=== PATIENT | male | born 1965 | race Caucasian/White ===

== ENCOUNTER 2024-09-27 11:42 | Day surgery (SDC) | payer BC ==
[~2024-09-27] VITALS: Ht 188 cm; Wt 134.5 kg
[~2024-09-27 11:42] MED LIST: INDO50S; Indomethacin50 MG; Lactated Ringer's 1,000 ML IV ONE
[2024-09-27] MEDS ORDERED: ATORVASTATIN CA20 MG (12:13)
[2024-09-27] MEDS ORDERED: Lidocaine HCl 4% 5 ML SDA ONE (12:38)
[2024-09-27] MEDS ORDERED: Lactated Ringer's 1,000 ML IV ONE (12:51)
[2024-09-27] MEDS ORDERED: propofoL 50 ML IV ONE ×2 (12:56→13:21)
[2024-09-27 14:26] VITALS: BP 110/64
== END 2024-09-27 14:20 | disposition home or self-care (01) ==
LOC: ORSCSDS 11:42
PROVIDERS: Specialist
PROC: 0DB58ZX Excision of Esophagus, Via Natural or Artificial Opening Endoscopic, Diagnostic (ICD-10-PCS; principal; 2024-09-27 13:00)
PROC: 0DB78ZX Excision of Stomach, Pylorus, Via Natural or Artificial Opening Endoscopic, Diagnostic (ICD-10-PCS; principal; 2024-09-27 13:00)
PROC: 0DBL8ZX Excision of Transverse Colon, Via Natural or Artificial Opening Endoscopic, Diagnostic (ICD-10-PCS; principal; 2024-09-27 13:00)
PROC: 0DB48ZX Excision of Esophagogastric Junction, Via Natural or Artificial Opening Endoscopic, Diagnostic (ICD-10-PCS; principal; 2024-09-27 13:00)
DX: K21.9 Gastro-esophageal reflux disease without esophagitis (principal); Z86.0100 Personal history of colon polyps, unspecified; K29.70 Gastritis, unspecified, without bleeding; K22.10 Ulcer of esophagus without bleeding; K44.9 Diaphragmatic hernia without obstruction or gangrene; D12.3 Benign neoplasm of transverse colon; K57.30 Diverticulosis of large intestine without perforation or abscess without bleeding; K64.8 Other hemorrhoids; E78.5 Hyperlipidemia, unspecified; F17.220 Nicotine dependence, chewing tobacco, uncomplicated; K76.0 Fatty (change of) liver, not elsewhere classified; E66.01 Morbid (severe) obesity due to excess calories; Z68.38 Body mass index [BMI] 38.0-38.9, adult; Z79.899 Other long term (current) drug therapy
CPT/HCPCS: 88305; 88342; J2003; J2704; J7120

== ENCOUNTER 2025-01-31 07:00 | Day surgery (SDC) | payer BC ==
[~2025-01-31] VITALS: Ht 188 cm; Wt 139.6 kg
[~2025-01-31 07:00] MED LIST changes: +ATORVASTATIN CA20 MG; -Lactated Ringer's 1,000 ML IV ONE
[2025-01-31] MEDS ORDERED: Lidocaine HCl 4% 5 ML SDA ONE (08:09)
[2025-01-31 09:28] VITALS: BP 126/76
== END 2025-01-31 09:20 | disposition home or self-care (01) ==
LOC: ORSCSDS 07:00
PROVIDERS: Specialist
PROC: 0DB78ZX Excision of Stomach, Pylorus, Via Natural or Artificial Opening Endoscopic, Diagnostic (ICD-10-PCS; principal; 2025-01-31 08:30)
DX: K21.9 Gastro-esophageal reflux disease without esophagitis (principal); K22.10 Ulcer of esophagus without bleeding; K44.9 Diaphragmatic hernia without obstruction or gangrene; K29.70 Gastritis, unspecified, without bleeding; K76.0 Fatty (change of) liver, not elsewhere classified; F17.220 Nicotine dependence, chewing tobacco, uncomplicated; E66.01 Morbid (severe) obesity due to excess calories; Z68.39 Body mass index [BMI] 39.0-39.9, adult; Z79.899 Other long term (current) drug therapy
CPT/HCPCS: 88305; 88341; 88342; J2003; J2704; J7120